=== PATIENT | male | born 1995 | race African-American/Black ===

== ENCOUNTER 2025-04-20 14:43 | Inpatient (IN) | payer MEDICARE, MEDICAID ==
[~2025-04-20] VITALS: Ht 195.6 cm; Wt 133.6 kg
[2025-04-20] MEDS ORDERED: PROP10TA73 PO (19:41)
[2025-04-20 21:10] VITALS: RESP 18
[2025-04-20 21:15] VITALS: BP 128/80; PULSE 86; RESP 18; TEMP 98; O2SAT 97
[2025-04-21] MEDS ORDERED: GuaiFENesin/D-METHORPHAN [SUGAR-FREE] 200-20MG/10 ML SYRUP UDCUP PO PRN (07:30)
[2025-04-21] MEDS ORDERED: ONDANSETRON 4 MG TABLET PO PRN (07:30)
[2025-04-21] MEDS ORDERED: MAG HYDROX/ALUMINUM HYD/SIMETH ES 30 ML SUSPENSION UDCUP PO PRN (07:30)
[2025-04-21] MEDS ORDERED: ACETAMINOPHEN 325 MG TABLET PO PRN (07:30)
[2025-04-21] MEDS ORDERED: NICOTINE 14 MG/24 HOUR PATCH TD PRN (07:30)
[2025-04-21] MEDS ORDERED: PETROLATUM,WHITE 28 GM JELLY TP PRN (07:30)
[2025-04-21] MEDS ORDERED: LOPERAMIDE HCL 2 MG CAPSULE PO PRN (07:30)
[2025-04-21] MEDS: PROPRANOLOL HCL 10 MG TABLET PO SCH (08:12)
[2025-04-21 08:14] LABS: PLATELET COUNT (AUTO) 259 K/uL (150-450); RED BLOOD CELL COUNT(AUTO) 5.15 MIL/uL (4.50-5.90); RED CELL DISTRIBUTION WIDTH 14.6 % (11.5-14.5); WHITE BLOOD COUNT (AUTO) 5.0 K/uL (4.5-11.0)
[2025-04-21 08:27] VITALS: BP 145/85; PULSE 66; RESP 17; TEMP 97.9; O2SAT 96
[2025-04-21 08:34] LABS: ASPARTATE AMINOTRANSFERASE 21 U/L (15-37); CALCIUM, TOTAL 8.7 mg/dL (8.8-10.5); CHOL/HDL RATIO 5.8 (4.2-7.3); CREATININE 0.75 mg/dL (0.60-1.30); GLOMERULAR FILTR. RATE CALC > 60 mL/min (>60); GLUCOSE,RANDOM 73 mg/dL (70-110); LDL CHOL (CALC.) 160 mg/dL (0-130); SODIUM SERUM 141 mmol/L (136-145); TOTAL PROTEIN, SERUM 7.3 g/dL (6.4-8.2); UREA NITROGEN, BLOOD 14 mg/dL (7-18)
[2025-04-21 09:02] LABS: ALCOHOL, BLOOD (SERUM) < 3 mg/dL (0-10)
[2025-04-21] MEDS: LURASIDONE HCL 60 MG TABLET PO SCH (16:45)
[2025-04-21] MEDS: MAGNESIUM HYDROXIDE SUSPENSION 30 ML UDCUP PO PRN (17:53)
[2025-04-21 20:00] VITALS: BP 134/82; PULSE 79; RESP 18; TEMP 98.2; O2SAT 100
[2025-04-21] MEDS: ZOLPIDEM TARTRATE 10 MG TABLET PO PRN (22:54)
[2025-04-22 08:11] VITALS: BP 150/100; PULSE 88; RESP 17; TEMP 98.4; O2SAT 99
[2025-04-22 08:36] LABS: PLATELET COUNT (AUTO) 274 K/uL (150-450); RED BLOOD CELL COUNT(AUTO) 5.25 MIL/uL (4.50-5.90); RED CELL DISTRIBUTION WIDTH 14.6 % (11.5-14.5); WHITE BLOOD COUNT (AUTO) 4.8 K/uL (4.5-11.0)
[2025-04-22 09:50] LABS: ASPARTATE AMINOTRANSFERASE 23 U/L (15-37); CALCIUM, TOTAL 8.7 mg/dL (8.8-10.5); CHOL/HDL RATIO 5.4 (4.2-7.3); CREATININE 0.81 mg/dL (0.60-1.30); GLOMERULAR FILTR. RATE CALC > 60 mL/min (>60); GLUCOSE,RANDOM 81 mg/dL (70-110); LDL CHOL (CALC.) 156 mg/dL (0-130); SODIUM SERUM 140 mmol/L (136-145); TOTAL PROTEIN, SERUM 7.3 g/dL (6.4-8.2); UREA NITROGEN, BLOOD 12 mg/dL (7-18)
[2025-04-22] MEDS: DOCUSATE SODIUM 100 MG CAPSULE PO PRN (16:46)
[2025-04-22 20:14] VITALS: BP 140/86; PULSE 80; RESP 18; TEMP 98.6; O2SAT 99
[2025-04-23] MEDS: IBUPROFEN 400 MG TABLET PO PRN (00:12)
[2025-04-23 00:14] VITALS: BP 139/84; PULSE 84; RESP 18; TEMP 97.8; O2SAT 99
[2025-04-23 01:10] VITALS: RESP 18
[2025-04-23 16:25] VITALS: BP 151/97; PULSE 78; RESP 18
[2025-04-23 20:43] VITALS: BP 143/79; PULSE 78; RESP 18; TEMP 98.2; O2SAT 100
[2025-04-24 09:04] VITALS: BP 170/96; PULSE 88; RESP 18; TEMP 98.3; O2SAT 97
[2025-04-24 20:40] VITALS: BP 137/67; PULSE 66; RESP 18; TEMP 98.5; O2SAT 99
[2025-04-24] MEDS: DIVALPROEX SODIUM 500 MG DR TABLET PO SCH (22:21)
[2025-04-25 09:09] VITALS: BP 154/98; PULSE 92; RESP 18; TEMP 98.4; O2SAT 99
[2025-04-25] MEDS ORDERED: PROP10TA72 PO (19:11)
[2025-04-25] MEDS ORDERED: DIVA-112 PO (19:11)
[2025-04-25] MEDS ORDERED: LURA60TA PO (19:11)
[2025-04-25 20:35] VITALS: RESP 17
[2025-04-26 09:07] VITALS: BP 158/95; PULSE 84; RESP 18; TEMP 96.4; O2SAT 100
[2025-04-26 11:18] VITALS: BP 135/96; PULSE 73; RESP 18; O2SAT 99
== END 2025-04-26 12:45 | disposition home or self-care (01) | DRG 885 ==
LOC: B2X 20:56
PROVIDERS: ADMIT Psychiatry & Neurology Psychiatry; ATTEND Psychiatry & Neurology Psychiatry
PROC: GZHZZZZ Group Psychotherapy (ICD-10-PCS; principal; 2025-04-21)
PROC: GZ52ZZZ Individual Psychotherapy, Cognitive (ICD-10-PCS; 2025-04-21)
DX: F25.1 Schizoaffective disorder, depressive type (principal); R45.851 Suicidal ideations; I10 Essential (primary) hypertension; E66.9 Obesity, unspecified; F43.12 Post-traumatic stress disorder, chronic; E78.5 Hyperlipidemia, unspecified; Z62.810 Personal history of physical and sexual abuse in childhood
CPT/HCPCS: 80053; 80061; 83036; 84436; 84439; 84443; 85025; G0480

== ENCOUNTER 2025-04-20 17:44 | Emergency (ER) | payer MEDICARE, MEDICAID ==
[~2025-04-20] VITALS: Ht 193 cm; Wt 136.0 kg
[2025-04-20 17:53] VITALS: TEMP 98
[2025-04-20 18:35] LABS: PLATELET COUNT (AUTO) 280 K/uL (150-450); RED BLOOD CELL COUNT(AUTO) 5.05 MIL/uL (4.50-5.90); RED CELL DISTRIBUTION WIDTH 14.5 % (11.5-14.5); WHITE BLOOD COUNT (AUTO) 5.7 K/uL (4.5-11.0)
[2025-04-20 18:44] LABS: CALCIUM, TOTAL 9.0 mg/dL (8.8-10.5); CREATININE 0.73 mg/dL (0.60-1.30); GLOMERULAR FILTR. RATE CALC > 60 mL/min (>60); GLUCOSE,RANDOM 98 mg/dL (70-110); SODIUM SERUM 139 mmol/L (136-145); UREA NITROGEN, BLOOD 15 mg/dL (7-18)
[2025-04-20 19:40] VITALS: BP 151/95; PULSE 74; RESP 20; O2SAT 98
[2025-04-20] MEDS ORDERED: PROP10TA73 PO (19:41)
[2025-04-20 20:50] LABS: COVID AG,FIA SOURCE NASAL SWAB
[2025-04-20 21:01] LABS: SARS-COV2 (COVID) ANTIGEN,FIA Negative (Negative)
== END 2025-04-20 21:32 ==
LOC: EMS 17:44
DX: F30.9 Manic episode, unspecified (principal); F20.9 Schizophrenia, unspecified; F42.9 Obsessive-compulsive disorder, unspecified; F43.10 Post-traumatic stress disorder, unspecified; I10 Essential (primary) hypertension; F17.210 Nicotine dependence, cigarettes, uncomplicated; Z88.5 Allergy status to narcotic agent; Z20.822 Contact with and (suspected) exposure to COVID-19
CPT/HCPCS: 99285; 87426; 80048; 85025; 36415; G0480